=== PATIENT | female | born 1995 | race Caucasian/White ===

== ENCOUNTER 2016-12-04 17:54 | Emergency (ER) | payer BC ==
[~2016-12-04] VITALS: Ht 162.6 cm; Wt 96.7 kg
[~2016-12-04 17:54] MED LIST: ASCA500 PO; BCPILLS PO; IBUP200C11 PO
[2016-12-04 17:56] VITALS: TEMP 36.9; Ht 162.6 cm; Wt 96.7 kg
--- NOTE | 2016-12-04 18:18 | EMERGENCY ROOM VISIT NOTE ---
History Report prepared by Gerda: Thomas Priteo Under the Supervision of: Dr. Mello Arrington M.D. First contact with patient: 18:02 Chief Complaint: HEADACHE Stated Complaint: FATIGUE,HEADACHES History of Present Illness The patient is a 21 year old female who presents to the Emergency Room with complaints of waxing and waning headache starting a few months ago. In August 2016, the patient was evaluated in the Emergency Room for flu-like symptoms and headache. She had a CT scan of head with normal results. She was found to have mild anemia and she was discharged home. The patient's headaches have not resolved since her last visit to the Emergency Room. She also complains of fatigue. The patient reports dizziness occurring with the onset of headache. The headache worsens throughout the day. At its worst, she reports a pain severity of 8/10. When she runs her hand through her head, she has been taking out clumps of hair. She denies fevers, chills, urinary symptoms, or any other complaints. She denies any chance of . She does not spend a lot of time in the [place]. The patient has been taking multivitamins, vitamin D, and iron pills. The patient does not have any medical problems. Source of History: patient Onset: a few months ago Position: head Symptom Intensity: 8/10 at its worst Timing: waxes/wanes Associated Symptoms: + fatigue, No chills, No fevers, No urinary symptoms Review of Systems See HPI for pertinent positives & negatives. A total of 10 systems reviewed and were otherwise negative. Past Medical & Surgical Medical Problems: (1) Anemia (2) Headache (3) Sore throat (4) Tingling (5) Vitamin D deficiency Surgical Problems: (1) [place] teeth removed Family History Patient reports no known family medical history. Social History Smoking Status: Never Smoker Alcohol Use: occasionally Drug Use: none Marital Status: in relationship Occupation Status: [employer] student Current/Historical Medications Scheduled Ascorbic Acid (Vitamin C), 500 MG PO DAILY Control Pills ( Control Pills), 1 TAB PO DAILY Cholecalciferol (Vitamin D3), 1 TAB PO DAILY Cholecalciferol (Vitamin D3), 1 TAB PO DAILY Ferrous Sulfate (Kp Ferrous Sulfate), 1 TAB PO BID Multivitamin (Multivitamin), 1 TAB PO DAILY Scheduled PRN Ibuprofen (Advil Migraine), 200 MG PO DAILY PRN for Headache Allergies Coded Allergies: No Known Allergies (Unverified , 12/04/16) Physical Exam Vital Signs Date Time Temp Pulse Resp B/P Pulse Ox O2 Delivery O2 Flow Rate FiO2 12/04/16 19:59 85 17 133/89 100 Room Air 12/04/16 18:44 81 12/04/16 17:56 36.9 85 18 131/91 99 Room Air Physical Exam GENERAL: Patient is in no acute distress. HEENT: No acute trauma, normocephalic atraumatic, pupils are equal, round, and reactive to light, mucous membranes moist, no nasal congestion, no scleral icterus. NECK: No stridor, no adenopathy, no meningismus, trachea is midline. LUNGS: Clear to auscultation bilaterally, no wheeze, no rhonchi, breath sounds equal. HEART: Without murmurs gallops or rubs, regular rate and rhythm. ABDOMEN: Soft, nontender, bowel sounds positive, no hernias, no peritonitis. EXTREMITIES: No cyanosis or edema, full range of motion of all the joints without pain or difficulty, no signs for acute trauma. NEUROLOGIC: Oriented x 3, no acute motor or sensory deficits, no focal weakness. No pronator drift or cerebellar dysfunction. SKIN: No rash, no jaundice, no diaphoresis. Medical Decision & Procedures Laboratory Results 12/04/16 19:15 Red Blood Count 4.35, Mean Corpuscular Volume 83.2, Mean Corpuscular Hemoglobin 28.3, Mean Corpuscular Hemoglobin Concent 34.0, Mean Platelet Volume 10.6, Neutrophils (%) (Auto) 59.8, Lymphocytes (%) (Auto) 33.0, Monocytes (%) (Auto) 5.8, Eosinophils (%) (Auto) 0.9, Basophils (%) (Auto) 0.2, Neutrophils # (Auto) 7.02, Lymphocytes # (Auto) 3.87, Monocytes # (Auto) 0.68, Eosinophils # (Auto) 0.11, Basophils # (Auto) 0.02 12/04/16 19:15 Test 12/04/16 19:15 12/04/16 19:40 White Blood Count 11.74 K/uL (4.8-10.8) Red Blood Count 4.35 M/uL (4.2-5.4) Hemoglobin 12.3 g/dL (12.0-16.0) Hematocrit 36.2 % (37-47) Mean Corpuscular Volume 83.2 fL (80-100) Mean Corpuscular Hemoglobin 28.3 pg (25-34) Mean Corpuscular Hemoglobin Concent 34.0 g/dl (32-36) Platelet Count 385 K/uL (130-400) Mean Platelet Volume 10.6 fL (7.4-10.4) Neutrophils (%) (Auto) 59.8 % Lymphocytes (%) (Auto) 33.0 % Monocytes (%) (Auto) 5.8 % Eosinophils (%) (Auto) 0.9 % Basophils (%) (Auto) 0.2 % Neutrophils # (Auto) 7.02 K/uL (1.4-6.5) Lymphocytes # (Auto) 3.87 K/uL (1.2-3.4) Monocytes # (Auto) 0.68 K/uL (0.11-0.59) Eosinophils # (Auto) 0.11 K/uL (0-0.5) Basophils # (Auto) 0.02 K/uL (0-0.2) RDW Standard Deviation 40.9 fL (36.4-46.3) RDW Coefficient of Variation 13.4 % (11.5-14.5) Immature Granulocyte % (Auto) 0.3 % Immature Granulocyte # (Auto) 0.04 K/uL (0.00-0.02) Anion Gap 10.0 mmol/L (3-11) Est Creatinine Clear Calc Drug Dose 150.0 ml/min Estimated GFR () 145.6 Estimated GFR (Non- 125.7 BUN/Creatinine Ratio 9.4 (10-20) Calcium Level 9.3 mg/dl (8.5-10.1) Total Bilirubin 0.3 mg/dl (0.2-1) Aspartate Amino Transf (AST/SGOT) 17 U/L (15-37) Alanine Aminotransferase (ALT/SGPT) 24 U/L (12-78) Alkaline Phosphatase 56 U/L (45-117) Total Protein 8.3 gm/dl (6.4-8.2) Albumin 4.3 gm/dl (3.4-5.0) Globulin 4.0 gm/dl (2.5-4.0) Albumin/Globulin Ratio 1.1 (0.9-2) Thyroid Stimulating Hormone (TSH) 0.536 uIu/ml (0.300-4.500) Urine Color YELLOW Urine Appearance CLEAR (CLEAR) Urine pH 7.0 (4.5-7.5) Urine Specific [place] 1.005 (1.000-1.030) Urine Protein NEG (NEG) Urine Glucose (UA) NEG (NEG) Urine Ketones NEG (NEG) Urine Occult Blood TRACE (NEG) Urine Nitrite NEG (NEG) Urine Bilirubin NEG (NEG) Urine Urobilinogen NEG (NEG) Urine Leukocyte Esterase TRACE (NEG) Urine WBC (Auto) 1-5 /hpf (0-5) Urine RBC (Auto) 0-4 /hpf (0-4) Urine Hyaline Casts (Auto) 0 /lpf (0-5) Urine Epithelial Cells (Auto) >30 /lpf (0-5) Urine Bacteria (Auto) NEG (NEG) Urine Test NEG (NEG) Laboratory results reviewed by me. ECG Indication: other (Headache) Rate (beats per minute): 70 Rhythm: normal sinus Findings: no acute ischemic change, no ectopy ED Course 1801: The patient was evaluated in room B05. A complete history and physical exam was performed. 2014: Reevaluated the patient. Discussed results and discharge instructions: She verbalized understanding and agreement. The patient is ready for discharge. Medical Decision Differential diagnosis includes but is not limited to anemia, electrolyte imbalance, thyroid disorder, renal failure, liver disease, UTI, , migraine headache, tension headache. There is a mild leukocytosis, this could be consistent with infection or just the stress of her current situation. No concerning anemia. No significant electrolyte abnormally, kidney failure or hepatitis. The patient appears to be in a euthyroid state. Urinalysis does not show obvious infection. testing is negative. EKG shows a normal sinus rhythm, no acute ischemia. On my exam, there were no focal neurologic deficits. The patient was not toxic or febrile. There was no meningismus. The patient presents with headaches which have been ongoing for months. She wakes up with no headache but as the day goes on, the headache starts. I have suggested she see neurology, a referral was given. She was reassured by her testing. She really came to make sure that her anemia had not worsened. The patient was encouraged to have an eye exam as well. She was told to return here for worsening symptoms. She was discharged in stable condition. Impression Primary Impression: Headache Scribe Attestation The scribe's documentation has been prepared under my direction and personally reviewed by me in its entirety. I confirm that the note above accurately reflects all work, treatment, procedures, and medical decision making performed by me. Departure Information Dispostion Home / Self-Care Referrals No Doctor, Assigned (PCP) Crow Swanson M.D. Forms HOME CARE DOCUMENTATION FORM, IMPORTANT VISIT INFORMATION Patient Instructions My [facility] Additional Instructions rest fluids have your eyes checked set up neurology appt--Dr. Swanson lab testing was ok return for worsening symptoms
[2016-12-04] MEDS ORDERED: FERR1TAB13 PO (18:22)
[2016-12-04] MEDS ORDERED: MULT-506 PO (18:22)
[2016-12-04] MEDS ORDERED: CHOL1000 PO (18:22)
[2016-12-04 19:25] LABS: BASO % 0.2 %; BASO ABS # 0.02 K/uL (0-0.2); COMPLETE YES; EOS % 0.9 %; HEMATOCRIT 36.2 % (37-47); IG% 0.3 %; LYMPH ABS # 3.87 K/uL (1.2-3.4); MEAN CELL VOLUME 83.2 fL (80-100); MEAN CORPUSCULAR HEMOGLOBIN 28.3 pg (25-34); MEAN PLATELET VOLUME 10.6 fL (7.4-10.4); MONO % 5.8 %; NEUT % 59.8 %; PLATELET COUNT 385 K/uL (130-400); RED BLOOD COUNT 4.35 M/uL (4.2-5.4); WHITE BLOOD COUNT 11.74 K/uL (4.8-10.8)
[2016-12-04 19:43] LABS: BUN/CREATININE RATIO 9.4 (10-20); CALCIUM 9.3 mg/dl (8.5-10.1); CREATININE 0.67 mg/dl (0.60-1.20); POTASSIUM 3.7 mmol/L (3.5-5.1)
[2016-12-04 19:53] LABS: ALB/GLOB RATIO 1.1 (0.9-2); THYROID STIMULATING HORMONE 0.536 uIu/ml (0.300-4.500)
[2016-12-04 19:59] VITALS: BP 133/89; PULSE 85; O2SAT 100
[2016-12-04 19:59] LABS: URINE APPEARANCE CLEAR (CLEAR); URINE BILIRUBIN NEG (NEG); URINE COLOR YELLOW; URINE EPITHELIAL CELL AUTO >30 /lpf (0-5); URINE NITRITE NEG (NEG); URINE SPECIFIC GRAVITY 1.005 (1.000-1.030); UROBILINOGEN NEG (NEG); ZZUR CULT IF INDIC CLEAN CATCH NO
[2016-12-04 20:01] LABS: MANUAL MICROSCOPIC REQUIRED? NO; REVIEW REQ? NO
== END 2016-12-04 20:25 | disposition home or self-care (01) ==
LOC: C.EDB 17:55
DX: R51 Headache (principal)